=== PATIENT | male | born 1955 | race Caucasian/White ===

== ENCOUNTER 2021-06-26 08:41 | Day surgery (SDC) | payer OTHER ==
[2021-06-26] MEDS: Lactated Ringers 1,000 ML IV SCH (09:18)
[2021-06-26] MEDS ORDERED: fentaNYL 100 MCG/2 ML SDV ONE (10:39)
[2021-06-26] MEDS ORDERED: Propofol 200 MG/20 ML SDV ONE ×2 (10:39→11:36)
[2021-06-26 12:04] VITALS: PULSE 46
[2021-06-26 13:08] VITALS: BP 110/65
--- NOTE | 2021-06-27 09:17 | OR ---
DATE OF SURGERY: 06/26/2021. REFERRING PROVIDER: Latisha Dubois MD PRE-OPERATIVE DIAGNOSES: 1. History of colon polyps. 2. Screening exam for colon cancer. 3. Last colonoscopy was 2015. 4. There is no known family history of colon cancer. POST-OPERATIVE DIAGNOSES: 1. Total of 3 polyps removed, all using cold forceps: a. 2 mm polyp at entry to cecum. b. 4 mm polyp at 100 cm. c. 2 mm polyp at 30 cm. 2. Mild sigmoid diverticulosis. PROCEDURE: Colonoscopy with polypectomy x3 using cold forceps. SURGEON: Phi Ugalde M.D. ANESTHESIA: Monitored anesthesia care. BOWEL PREP: Okay, but just fair in the right colon. Shaka is a 65-year-old male who was brought to the endoscopy suite after discussing risks and benefits of the procedure. Informed consent was obtained for conscious sedation and colonoscopy with or without biopsy and/or polypectomy. We also discussed possibility of missed lesions. Pre-procedure exam was unremarkable. IV, oxygen, and monitors were placed. The patient was placed in the left lateral decubitus position. Sedation was administered and a digital rectal exam was performed and unremarkable. Colonoscope was passed into the rectum and slowly advanced all the way to the cecum. Cecum was viewed and photographed. The colonoscope was slowly withdrawn and the mucosa was closed observed in a direct circumferential manner. The ascending colon was remarkable for 2 mm polyp at the entry to cecum and 4 mm polyp at 100 cm, both removed using cold forceps. The transverse colon was unremarkable. The descending colon was unremarkable. The sigmoid colon revealed 2 mm polyp at 30 cm, removed using cold forceps. There was also mild diverticulosis noted. Retroflexion was performed and rectal mucosa was unremarkable. Scope was removed. The patient tolerated the procedure well. The patient was monitored until that baseline status. Discharge instructions were reviewed and the patient was discharged in good condition. COMPLICATIONS: None. TOTAL TIME: 24 minutes. ESTIMATED BLOOD LOSS: About 1 mL. RECOMMENDATIONS/FOLLOW-UP: We will await results of path report to determine ideal followup interval. I would like to kindly thank Dr. Dubois for this referral. DMB: 06/26/2021 14:37:04 MODL: 06/26/2021 20:33:34 /[id number]
== END 2021-06-26 13:08 | disposition home or self-care (01) ==
LOC: VM.SDS 08:41
PROVIDERS: ATTEND Family Medicine
DX: Z12.11 Encounter for screening for malignant neoplasm of colon (principal); D12.0 Benign neoplasm of cecum; K57.30 Diverticulosis of large intestine without perforation or abscess without bleeding; M10.9 Gout, unspecified; E78.1 Pure hyperglyceridemia; E66.9 Obesity, unspecified; G43.109 Migraine with aura, not intractable, without status migrainosus; Z98.890 Other specified postprocedural states; Z79.899 Other long term (current) drug therapy; Z68.31 Body mass index [BMI] 31.0-31.9, adult
CPT/HCPCS: 00812; J2704; J3010; J7120